=== PATIENT | male | born 1990 | race African-American/Black ===

== ENCOUNTER 2018-04-03 22:00 | Inpatient (IN) | payer OTHER ==
[~2018-04-03] VITALS: Ht 152.4 cm; Wt 89.0 kg
[2018-04-03] MEDS ORDERED: ONDANSETRON PF 4 MG/2 ML VIAL. IV ONE (22:30)
[2018-04-03] MEDS ORDERED: IV NORMAL SALINE 1,000ML 1,000 ML IV ONE ×2 (22:30)
[2018-04-03 22:59] LABS: ALBUMIN 4.3 g/dL (3.4-5.0); ALBUMIN/GLOBULIN RATIO 0.8 (1.0-1.7); CALCIUM 11.2 mg/dL (8.5-10.1); CREATININE 2.7 mg/dL (0.7-1.3); GFR 34.2; POTASSIUM 5.7 mmol/L (3.5-5.1); TOTAL BILIRUBIN 0.4 mg/dL (0.2-1.0); TOTAL PROTEIN 9.7 g/dL (6.4-8.2)
[2018-04-03] MEDS ORDERED: 0.9 % SODIUM CHLORIDE 150ML 150 ML ONE (23:28)
--- NOTE | 2018-04-03 23:31 | PHYS DOC ---
Adult General Chief Complaint Chief Complaint vomiting HPI HPI Due to autism patient is a good historian most of the history was taken from his family his and his cousin 28 years old male presented to the emergency department with vomiting diarrhea and abdominal pain described as cramps all over diarrhea as loose stool his uncle was diagnosed with C. difficile colitis who lives in the same house family concerned the patient has C. difficile colitis Review of systems very limited due to patient mental status Review of Systems Review of Systems Limited due to patient's mental status Current Medications Current Medications Current Medications Medications (Trade) Dose Ordered Sig/Vincent Start Time Stop Time Status Last Admin Dose Admin Insulin Human Regular (HumuLIN R VIAL) 10 unit 1X ONCE 04/03/18 23:30 04/03/18 23:31 UNV Insulin Human Regular 150 unit/ Sodium Chloride 151.5 ml @ 0 mls/hr 1X ONCE 04/03/18 23:30 04/03/18 23:31 UNV Ondansetron HCl (Zofran) 4 mg 1X ONCE 04/03/18 22:30 04/03/18 22:31 DC 04/03/18 23:06 4 MG Sodium Chloride 1,000 ml @ 1,000 mls/hr 1X ONCE 04/03/18 22:30 04/03/18 23:29 04/03/18 23:05 1,000 MLS/HR Allergies Allergies Allergies Coded Allergies Type Severity Reaction Last Updated Verified No Known Drug Allergies 04/03/18 No Physical Exam Physical Exam Constitutional: Well developed, well nourished, looks sick dry mucosa HENT: Normocephalic, atraumatic, bilateral external ears normal, oropharynx dry , no oral exudates, nose normal. [] Eyes: PERRLA, EOMI, conjunctiva normal, no discharge. [] Neck: Normal range of motion, no tenderness, supple, no stridor. [] Cardiovascular:Heart rate regular rhythm, no murmur [] Lungs & Thorax: Bilateral breath sounds clear to auscultation [] Abdomen: Bowel sounds normal, soft, no tenderness, no masses, no pulsatile masses. [] Skin: Warm, dry, no erythema, no rash. [] Back: No tenderness, no CVA tenderness. [] Extremities: No tenderness, no cyanosis, no clubbing, ROM intact, no edema. [] Neurologic: Alert and oriented X 3, normal motor function, normal sensory function, no focal deficits noted. [] Psychologic: Affect normal, judgement normal, mood normal. [] Current Patient Data Vital Signs Vital Signs Date Time Temp Pulse Resp B/P (MAP) Pulse Ox O2 Delivery O2 Flow Rate FiO2 04/03/18 22:00 98.3 109 18 94 Room Air Lab Results Laboratory Tests Test 04/03/18 22:30 Sodium Level 118 mmol/L (136-145) *L Potassium Level 5.7 mmol/L (3.5-5.1) H Chloride Level 84 mmol/L (98-107) L Carbon Dioxide Level 15 mmol/L (21-32) L Anion Gap 19 (6-14) H Blood Urea Nitrogen 42 mg/dL (8-26) H Creatinine 2.7 mg/dL (0.7-1.3) H Estimated GFR (Cockcroft-Gault) 34.2 BUN/Creatinine Ratio 16 (6-20) Glucose Level 1613 mg/dL (70-99) *H Calcium Level 11.2 mg/dL (8.5-10.1) H Total Bilirubin 0.4 mg/dL (0.2-1.0) Aspartate Amino Transferase (AST) 14 U/L (15-37) L Alanine Aminotransferase (ALT) 45 U/L (16-63) Alkaline Phosphatase 208 U/L (46-116) H Total Protein 9.7 g/dL (6.4-8.2) H Albumin 4.3 g/dL (3.4-5.0) Albumin/Globulin Ratio 0.8 (1.0-1.7) L Lipase 675 U/L (73-393) H EKG EKG [] Radiology/Procedures Radiology/Procedures [] Course & Med Decision Making Course & Med Decision Making Pertinent Labs and Imaging studies reviewed. (See chart for details) [] Final Impression Final Impression Case discussed with Dr. Munoz patient to be admitted to his service in ICU[] Problems: (1) Diabetic ketoacidosis Qualifiers: Qualified Codes: E10.10 - Type 1 diabetes mellitus with ketoacidosis without coma Dragon Disclaimer Dragon Disclaimer This electronic medical record was generated, in whole or in part, using a voice recognition dictation system. SHORTY NOYOLA MD Apr 03, 2018 23:31
[2018-04-03 23:52] LABS: BASO % 0 % (0-3); EOS % 0 % (0-3); LYMPH # 0.4 x10^3/uL (1.0-4.8); LYMPH % 5 % (24-48); MEAN CORPUSCULAR HEMOGLOBIN 28 pg (25-35); MONO # 0.3 x10^3/uL (0.0-1.1); MONO % 4 % (0-9); NEUT % 90 % (31-73); PLATELET COUNT 313 x10^3/uL (140-400); RED CELL DISTRIBUTION WIDTH 14.7 % (11.5-14.5); WHITE BLOOD COUNT 6.7 x10^3/uL (4.0-11.0)
[2018-04-03] MEDS ORDERED: IV NORMAL SALINE 1,000ML 1,000 ML IV SCH (23:55)
[2018-04-03] MEDS ORDERED: INSULIN REGULAR 100 UNIT/ML 3ML VIAL. IV ONE (23:55)
[2018-04-03] MEDS ORDERED: ONDANSETRON PF 4 MG/2 ML VIAL. IV PRN (23:55)
[2018-04-03] MEDS ORDERED: INSULIN REGULAR VIAL 150 UNIT in 0.9 % SODIUM CHLORIDE 150ML 150 ML IV ONE (23:55)
[2018-04-04] VITALS (11 sets, daily range): BP systolic 98–158; BP diastolic 55–90
[2018-04-04 00:02] LABS: HEMATOCRIT 47.5 % (39.0-53.0); HEMOGLOBIN 14.9 g/dL (13.0-17.5); RED BLOOD COUNT 5.27 x10^6/uL (4.30-5.70)
[2018-04-04 00:03] LABS: MEAN CORPUSCULAR HGB CONC 31 g/dL (31-37); MEAN CORPUSCULAR VOLUME 90 fL (79-100)
[2018-04-04 00:50] LABS: BGAS PH 7.12 (7.35-7.46)
[2018-04-04 02:20] LABS: CALCIUM 10.7 mg/dL (8.5-10.1); CREATININE 2.4 mg/dL (0.7-1.3); GFR 39.2
[2018-04-04 02:24] LABS: POTASSIUM 2.9 mmol/L (3.5-5.1)
[2018-04-04] MEDS ORDERED: POTASSIUM CHLORIDE 20 MEQ/15 ML ORAL LIQUID. PO ONE ×2 (03:30→07:00)
[2018-04-04] MEDS ORDERED: MULT-245 PO (03:58)
[2018-04-04 06:24] LABS: ALBUMIN 4.4 g/dL (3.4-5.0); ALBUMIN/GLOBULIN RATIO 0.8 (1.0-1.7); CALCIUM 11.6 mg/dL (8.5-10.1); CREATININE 2.3 mg/dL (0.7-1.3); GFR 41.2; TOTAL BILIRUBIN 0.3 mg/dL (0.2-1.0)
[2018-04-04] MEDS ORDERED: INSULIN REGULAR VIAL 150 UNIT in 0.9 % SODIUM CHLORIDE 150ML 150 ML IV PRN (08:00)
[2018-04-04] MEDS ORDERED: POTASSIUM CL 20MEQ IN 0.9%NACL 1,000 ML IV SCH (10:00)
[2018-04-04 10:06] LABS: CALCIUM 11.7 mg/dL (8.5-10.1); CREATININE 2.8 mg/dL (0.7-1.3); GFR 32.8; POTASSIUM 3.1 mmol/L (3.5-5.1)
[2018-04-04] MEDS ORDERED: POTASSIUM CHLORIDE IV SCH (11:00)
[2018-04-04] MEDS ORDERED: SODIUM CHLORIDE IV SCH (11:00)
[2018-04-04] MEDS ORDERED: IV DEXTROSE 5% 1,000 ML IV SCH (11:45)
[2018-04-04 12:30] LABS: CREATININE 3.5 mg/dL (0.7-1.3); GFR 25.4
[2018-04-04 12:32] LABS: CALCIUM 12.1 mg/dL (8.5-10.1)
[2018-04-04 12:47] LABS: MAGNESIUM 4.5 mg/dL (1.8-2.4)
--- NOTE | 2018-04-04 12:52 | RAD ---
Portable chest, 04/04/2018: HISTORY: DKA The heart size and pulmonary vascularity are normal. The lungs are clear. There is no evidence of pleural fluid. IMPRESSION: No acute cardiopulmonary abnormality is detected. Electronically signed by: Juan James MD (04/04/2018 12:49 PM) [facility]
[2018-04-04 13:11] LABS: AMORPHOUS SEDIMENT,UR PRESENT /HPF; BACTERIA,URINE FEW /HPF (0-FEW); BILIRUBIN,URINE NEG (NEG); CLARITY,URINE HAZY; COLOR,URINE YELLOW; GLUCOSE,URINE >=1000 mg/dL (NEG); GRANULAR CASTS,URINE FEW /HPF; NITRITE,URINE NEG (NEG); SQUAMOUS EPITHELIAL CELL,UR OCC /LPF; UROBILINOGEN,URINE 0.2 mg/dL (0.2 mg/dL)
--- NOTE | 2018-04-04 13:25 | EKG ---
[address] [address] Test Date: 2018-04-04 Test Time: 13:22:17 Pat Name: RUSTAM LEBRON Department: Room: [facility] 1 Gender: M Fuel Operator: SHIVAM : 1990 Requested By: JEROME BECK Order Number: [id number] Reading MD: Measurements Intervals [place] Rate: 122 P: 90 OK: 114 QRS: 83 QRSD: 84 T: -49 QT: 322 QTc: 460 Interpretive Statements SINUS TACHYCARDIA ST & T ABNORMALITY, CONSIDER INFEROLATERAL ISCHEMIA OR LEFT VENTRICULAR STRAIN ABNORMAL ECG RI6.01 No previous ECG available for comparison
--- NOTE | 2018-04-04 13:52 | PDOC1 ---
History of Present Illness Reason for Visit: nausea and vomiting History of Present Illness Patient is a 28-year-old male presented initially last night to the [facility] emergency department accompanied by family with whom he currently lives. He has history of autism and cerebral palsy and reportedly a " psychiatric history" as well. He was brought to the emergency department with reports of severe crampy type abdominal discomfort, nausea vomiting, and reportedly diarrhea. He had a potential recent exposure to Clostridium difficile but otherwise no reports of travel or bad food exposure, no evidence of systemic illness such as fever chills. He was tachycardic in the emergency department and labs revealed a sodium of 118, potassium 5.7, B UN of 42, creatinine 2.7, glucose 1613, his anion gap was 19 and lipase was 675. No further workup was undertaken and he was treated symptomatically with Zofran for the vomiting received normal saline IV boluses, placed on an insulin drip, and potassium was replaced by mouth. Patient was admitted to the ICU. Nursing reports that the patient's blood glucose remained so elevated such that fingerstick checks were impossible as instrumentation simply read "high." They checked every 2 hour basic metabolic panels and titrated his insulin drip accordingly. Throughout the night and with 5 L of normal saline intravenously the patient's sodium did increase from 118-157. Despite the hydration patient's renal function is currently at BUN 37 and creatinine 3.5. Patient's potassium dropped to currently 3.0, glucose has steadily trended downward and is currently at 558. His anion gap did correct for a short time to 14 but is currently back up at 17. Corrected calcium has remained elevated as well. Upon learning of the admission and reviewing his labs I did contact on-call hospitalist at [facility] Dr. Choi as although at the time I had not seen the patient his labs were trending negatively and I felt the patient will need to be evaluated at a higher level of care, Dr. Choi graciously accepted the patient for ICU admission [facility]. When I finished clinic this morning I did visit with the patient's and his family in the ICU and discuss the patient's presentation, course overnight, and they are in agreement with transfer as well. They report the patient has no history of diabetes or pancreatitis in the past. RN reports she has not yet produced any stools to send for testing. Chief Complaint: NAUSEA/VOMITING/DIARRHEA Allergies: Coded Allergies: No Known Drug Allergies (Unverified , 04/03/18) Past Medical History Psych: Other (autism, cerebral palsy, "psychiatric problems") Past Surgical History: No pertinent history Past Social History Smoke: No Alcohol: none Drugs: None Lives: with Family Review of Systems Review Of Systems Due to patient's inability to communicate review of systems as per history of present illness. Medications Current Medications Sodium Chloride 1,000 ml @ 1,000 mls/hr 1X ONCE IV Last administered on at 23:05; Start 04/03/18 at 22:30; Stop 04/03/18 at 23:29; Status DC Ondansetron HCl (Zofran) 4 mg 1X ONCE IV Last administered on 04/03/18at 23:06 ; Start 04/03/18 at 22:30; Stop 04/03/18 at 22:31; Status DC Sodium Chloride 1,000 ml @ 1,000 mls/hr 1X ONCE IV Last administered on at 23:05; Start 04/03/18 at 22:30; Stop 04/03/18 at 23:29; Status DC Insulin Human Regular (HumuLIN R VIAL) 10 unit 1X ONCE IV Last administered on 04/03/18at 23:52; Start 04/03/18 at 23:55; Stop 04/03/18 at 23:56; Status DC Insulin Human Regular 150 unit/ Sodium Chloride 151.5 ml @ 0 mls/hr 1X ONCE IV Last administered on 04/03/18at 23:55; Start 04/03/18 at 23:55; Stop at 23:56; Status DC Sodium Chloride 150 ml @ As Directed STK-MED ONCE .ROUTE ; Start 04/03/18 at 23 :28; Stop 04/03/18 at 23:29; Status DC Ondansetron HCl (Zofran) 4 mg PRN Q4HRS PRN IV NAUSEA/VOMITING Last administered on 04/04/18at 07:08; Start 04/03/18 at 23:55; Stop 04/04/18 at 23:54 Sodium Chloride 1,000 ml @ 0 mls/hr Q0M IV ; Start 04/03/18 at 23:55 Potassium Chloride (KCl Oral Soln) 40 meq 1X ONCE PO Last administered on 04/04at 03:41; Start 04/04/18 at 03:30; Stop 04/04/18 at 03:33; Status DC Influenza Virus Vaccine (Afluria Trivalent [id number] Syringe) 0.5 ml ONCE ONCE VAX IM ; Start 04/04/18 at 09:00; Stop 04/04/18 at 09:01; Status DC Potassium Chloride (KCl Oral Soln) 40 meq 1X ONCE PO Last administered on 04/04at 06:55; Start 04/04/18 at 07:00; Stop 04/04/18 at 07:01; Status DC Insulin Human Regular 150 unit/ Sodium Chloride 151.5 ml @ 0 mls/hr CONT PRN IV . Last administered on 04/04/18at 09:00; Start 04/04/18 at 08:00 Potassium Chloride/Sodium Chloride 1,000 ml @ 150 mls/hr Q6H40M IV ; Start 04/04/18 at 10:00; Stop 04/04/18 at 10:31; Status DC Potassium Chloride/Sodium Chloride 500 ml @ 150 mls/hr Q3H20M IV Last administered on 04/04/18at 10:58; Start 04/04/18 at 11:00; Stop 04/04/18 at 14:19 Dextrose 1,000 ml @ 100 mls/hr Q10H IV Last administered on 04/04/18at 12:53; Start 04/04/18 at 11:45 Fentanyl Citrate (Fentanyl 2ml Vial) 50 mcg PRN Q2HR PRN IV PAIN Last administered on 04/04/18at 13:05; Start 04/04/18 at 12:30 Active Scripts Active Reported Multi Vitamin Daily (Multivitamin) 1 Each Tablet 1 Each PO DAILY Exam Vital Signs Vital Signs Date Time Temp Pulse Resp B/P (MAP) Pulse Ox O2 Delivery O2 Flow Rate FiO2 04/04/18 13:19 98.3 121 21 98/55 (69) 94 Room Air General Appearance: Alert (and somewhat cooperative) HEENT: Atraumatic, Other (dry mucous membranes) Respiratory: Clear to auscultation, Normal air movement Heart: Other (tachycardia) Abdominal: Soft (mildly distended no palpable masses, generalized tender without obvious peritoneal signs) Extremities: No clubbing, No cyanosis Neuro: Other (appears to move all extremities family reports at baseline) Assessment/Plan Assessment/Plan Diabetic ketoacidosis Acute pancreatitis Acute kidney injury versus possible worsening of pre-existing underlying renal disease Severe hyponatremia and hypokalemia Debilitated state with pre-existing autism and cerebral palsy Continue insulin drip and her electrolyte replacement. Chest x-ray, urinalysis, and pancultures. D5W at 100 mL an hour. Will hold off on CT abdomen and pelvis until after transfer to avoid delay, may also need GI consultation. Fentanyl intravenously for pain control. Check EKG as well as cardiac enzymes, check triglycerides as well. Transfer to [facility] ICU Dr. Choi is accepting. COURSE Allergies Coded Allergies Type Severity Reaction Last Updated Verified No Known Drug Allergies 04/03/18 No Laboratory Tests Test 04/03/18 22:30 04/03/18 23:10 04/04/18 00:45 04/04/18 01:40 Sodium Level 118 mmol/L (136-145) 132 mmol/L (136-145) Potassium Level 5.7 mmol/L (3.5-5.1) 2.9 mmol/L (3.5-5.1) Chloride Level 84 mmol/L (98-107) 99 mmol/L (98-107) Carbon Dioxide Level 15 mmol/L (21-32) 15 mmol/L (21-32) Anion Gap 19 (6-14) 18 (6-14) Blood Urea Nitrogen 42 mg/dL (8-26) 38 mg/dL (8-26) Creatinine 2.7 mg/dL (0.7-1.3) 2.4 mg/dL (0.7-1.3) Estimated GFR (Cockcroft-Gault) 34.2 39.2 BUN/Creatinine Ratio 16 (6-20) Glucose Level 1613 mg/dL (70-99) 1645 mg/dL (70-99) Calcium Level 11.2 mg/dL (8.5-10.1) 10.7 mg/dL (8.5-10.1) Total Bilirubin 0.4 mg/dL (0.2-1.0) Aspartate Amino Transf (AST/SGOT) 14 U/L (15-37) Alanine Aminotransferase (ALT/SGPT) 45 U/L (16-63) Alkaline Phosphatase 208 U/L (46-116) Total Protein 9.7 g/dL (6.4-8.2) Albumin 4.3 g/dL (3.4-5.0) Albumin/Globulin Ratio 0.8 (1.0-1.7) Lipase 675 U/L (73-393) White Blood Count 6.7 x10^3/uL (4.0-11.0) Red Blood Count 5.27 x10^6/uL (4.30-5.70) Hemoglobin 14.9 g/dL (13.0-17.5) Hematocrit 47.5 % (39.0-53.0) Mean Corpuscular Volume 90 fL (79-100) Mean Corpuscular Hemoglobin 28 pg (25-35) Mean Corpuscular Hemoglobin Concent 31 g/dL (31-37) Red Cell Distribution Width 14.7 % (11.5-14.5) Platelet Count 313 x10^3/uL (140-400) Neutrophils (%) (Auto) 90 % (31-73) Lymphocytes (%) (Auto) 5 % (24-48) Monocytes (%) (Auto) 4 % (0-9) Eosinophils (%) (Auto) 0 % (0-3) Basophils (%) (Auto) 0 % (0-3) Neutrophils # (Auto) 6.0 x10^3uL (1.8-7.7) Lymphocytes # (Auto) 0.4 x10^3/uL (1.0-4.8) Monocytes # (Auto) 0.3 x10^3/uL (0.0-1.1) Eosinophils # (Auto) 0.0 x10^3/uL (0.0-0.7) Basophils # (Auto) 0.0 x10^3/uL (0.0-0.2) Blood Gas pH 7.12 (7.35-7.46) Blood Gas PCO2 37 mmHg (35-46) Blood Gas PO2 88 mmHg (80-100) Blood Gas HCO3 12 mmol/L (21-28) Arterial Bld O2 Saturation (Calc) 93 % (92-99) FiO2 21 % Test 04/04/18 03:50 04/04/18 05:55 04/04/18 08:52 04/04/18 12:01 Glucose Level 1270 mg/dL (70-99) 1116 mg/dL (70-99) 794 mg/dL (70-99) Sodium Level 145 mmol/L (136-145) 152 mmol/L (136-145) Potassium Level 3.0 mmol/L (3.5-5.1) 3.1 mmol/L (3.5-5.1) Chloride Level 111 mmol/L (98-107) 117 mmol/L (98-107) Carbon Dioxide Level 20 mmol/L (21-32) 17 mmol/L (21-32) Anion Gap 14 (6-14) 18 (6-14) Blood Urea Nitrogen 34 mg/dL (8-26) 36 mg/dL (8-26) Creatinine 2.3 mg/dL (0.7-1.3) 2.8 mg/dL (0.7-1.3) Estimated GFR (Cockcroft-Gault) 41.2 32.8 BUN/Creatinine Ratio 15 (6-20) Calcium Level 11.6 mg/dL (8.5-10.1) 11.7 mg/dL (8.5-10.1) Total Bilirubin 0.3 mg/dL (0.2-1.0) Aspartate Amino Transf (AST/SGOT) 5 U/L (15-37) Alanine Aminotransferase (ALT/SGPT) 43 U/L (16-63) Alkaline Phosphatase 193 U/L (46-116) Total Protein 10.0 g/dL (6.4-8.2) Albumin 4.4 g/dL (3.4-5.0) Albumin/Globulin Ratio 0.8 (1.0-1.7) Glucose (Fingerstick) 492 mg/dL (70-99) Test 04/04/18 12:05 04/04/18 12:35 04/04/18 13:10 Sodium Level 157 mmol/L (136-145) Potassium Level 3.0 mmol/L (3.5-5.1) Chloride Level 119 mmol/L (98-107) Carbon Dioxide Level 21 mmol/L (21-32) Anion Gap 17 (6-14) Blood Urea Nitrogen 37 mg/dL (8-26) Creatinine 3.5 mg/dL (0.7-1.3) Estimated GFR (Cockcroft-Gault) 25.4 Glucose Level 558 mg/dL (70-99) Calcium Level 12.1 mg/dL (8.5-10.1) Magnesium Level 4.5 mg/dL (1.8-2.4) Creatine Kinase 424 U/L (39-308) Troponin I Quantitative 0.053 ng/mL (0-0.055) Urine Collection Type U cath Urine Color Yellow Urine Clarity Hazy Urine pH 5.5 Urine Specific [place] <=1.005 Urine Protein 100 mg/dl (NEG-TRACE) Urine Glucose (UA) >=1000 mg/dL (NEG) Urine Ketones (Stick) Neg mg/dL (NEG) Urine Blood Mod (NEG) Urine Nitrite Neg (NEG) Urine Bilirubin Neg (NEG) Urine Urobilinogen Dipstick 0.2 mg/dL (0.2 mg/dL) Urine Leukocyte Esterase Neg (NEG) Urine RBC 1-2 /HPF (0-2) Urine WBC 1-4 /HPF (0-4) Urine Squamous Epithelial Cells Occ /LPF Urine Amorphous Sediment Present /HPF Urine Bacteria Few /HPF (0-FEW) Urine Granular Casts Few /HPF Urine Mucus Slight /LPF Glucose (Fingerstick) 475 mg/dL (70-99) Current Medications Medications (Trade) Dose Ordered Sig/Vincent Route PRN Reason Start Time Stop Time Status Last Admin Dose Admin Sodium Chloride 1,000 ml @ 1,000 mls/hr 1X ONCE IV 04/03/18 22:30 04/03/18 23:29 DC 04/03/18 23:05 Ondansetron HCl (Zofran) 4 mg 1X ONCE IV 04/03/18 22:30 04/03/18 22:31 DC 04/03/18 23:06 Sodium Chloride 1,000 ml @ 1,000 mls/hr 1X ONCE IV 04/03/18 22:30 04/03/18 23:29 DC 04/03/18 23:05 Insulin Human Regular (HumuLIN R VIAL) 10 unit 1X ONCE IV 04/03/18 23:55 04/03/18 23:56 DC 04/03/18 23:52 Insulin Human Regular 150 unit/ Sodium Chloride 151.5 ml @ 0 mls/hr 1X ONCE IV 04/03/18 23:55 04/03/18 23:56 DC 04/03/18 23:55 Sodium Chloride 150 ml @ As Directed STK-MED ONCE .ROUTE 04/03/18 23:28 04/03/18 23:29 DC Ondansetron HCl (Zofran) 4 mg PRN Q4HRS PRN IV NAUSEA/VOMITING 04/03/18 23:55 04/04/18 23:54 04/04/18 07:08 Sodium Chloride 1,000 ml @ 0 mls/hr Q0M IV 04/03/18 23:55 Potassium Chloride (KCl Oral Soln) 40 meq 1X ONCE PO 04/04/18 03:30 04/04/18 03:33 DC 04/04/18 03:41 Influenza Virus Vaccine (Afluria Trivalent [id number] Syringe) 0.5 ml ONCE ONCE VAX IM 04/04/18 09:00 04/04/18 09:01 DC Potassium Chloride (KCl Oral Soln) 40 meq 1X ONCE PO 04/04/18 07:00 04/04/18 07:01 DC 04/04/18 06:55 Insulin Human Regular 150 unit/ Sodium Chloride 151.5 ml @ 0 mls/hr CONT PRN IV . 04/04/18 08:00 04/04/18 09:00 Potassium Chloride/Sodium Chloride 1,000 ml @ 150 mls/hr Q6H40M IV 04/04/18 10:00 04/04/18 10:31 DC Potassium Chloride/Sodium Chloride 500 ml @ 150 mls/hr Q3H20M IV 04/04/18 11:00 04/04/18 14:19 04/04/18 10:58 Dextrose 1,000 ml @ 100 mls/hr Q10H IV 04/04/18 11:45 04/04/18 12:53 Fentanyl Citrate (Fentanyl 2ml Vial) 50 mcg PRN Q2HR PRN IV PAIN 04/04/18 12:30 04/04/18 13:05 Orders Procedure Category Date Status Time Comprehensive LAB 04/03/18 Complete Metabolic Panel 22:05 Cdif W/ Epi Pcr LAB 04/03/18 Logged 22:05 Lipase LAB 04/03/18 Complete 22:05 Iv Normal Saline PHA 04/03/18 Complete 1,000ml (Iv Sodium 22:30 Ondansetron Pf PHA 04/03/18 Complete (Zofran) 22:30 Iv Normal Saline PHA 04/03/18 Complete 1,000ml (Iv Sodium 22:30 Cbc W Autodiff LAB 04/03/18 Complete 22:50 Insulin Regular Vial PHA 04/03/18 Complete (Humulin R Vial) 23:55 Insulin Regular Vial PHA 04/03/18 Complete (Humulin R Vial) 23:55 Pulse Oximetry: [facility] 04/03/18 In Process Standing Order 23:20 Arterial Blood Gas LAB 04/03/18 Complete 23:26 0.9 % Sodium Chloride PHA 04/03/18 Complete 150ml (Iv Normal S 23:28 [place] Order ADT 04/03/18 Transmitted 23:31 Code Status CODE 04/03/18 Transmitted 23:31 Vital Signs, Per [facility] 04/03/18 In Process Protocol 23:31 Nothing By Mouth DIET 04/04/18 Transmitted Breakfast Ambulate With DUYEN 04/03/18 In Process Assistance 23:31 Comprehensive LAB 04/04/18 Complete Metabolic Panel 06:00 Ondansetron Pf PHA 04/03/18 In Process (Zofran) 23:55 Iv Normal Saline PHA 04/03/18 In Process 1,000ml (Iv Sodium 23:55 Pneumatic Compression DUYEN 04/04/18 In Process Device 00:37 Admit Orders [facility] 04/04/18 Transmitted Basic Metabolic Panel LAB 04/04/18 Complete 02:06 Potassium Chloride PHA 04/04/18 Complete Oral Soln (Kcl Oral S 03:30 Mrsa By Pcr LAB 04/04/18 In Process 02:26 Rehab Screening (Pt, REHAB 04/05/[address], [address]) 07:00 Flu Vacc Screen [facility] 04/04/18 In Process 03:11 Isolation OTHER 04/04/18 Transmitted 03:11 Flu Vacc Ts 2017- PHA 04/04/18 Complete (5yr+)/Pf (Afluria T 09:00 Glucose LAB 04/04/18 Complete 03:53 Potassium Chloride PHA 04/04/18 Complete Oral Soln (Kcl Oral S 07:00 Insulin Regular Vial PHA 04/04/18 In Process (Humulin R Vial) 08:00 Basic Metabolic Panel LAB 04/04/18 Complete 09:45 Nutrition Consult NOURISH 04/04/18 Transmitted 09:45 Insert And Maintain DUYEN 04/04/18 In Process [place] Cath 09:45 Potassium Cl 20meq In PHA 04/04/18 Complete 0.9%Nacl (Kcl 20 M 10:00 Potassium Cl PHA 04/04/18 In Process 20meq-0.45% Nacl (Kcl 11:00 Basic Metabolic Panel LAB 04/04/18 Complete 12:00 Iv Dextrose 5% PHA 04/04/18 In Process 11:45 Chest Ap Only RAD 04/04/18 Resulted 12:22 Blood Culture CHAPO 04/04/18 In Process 12:22 Ua, Cult If Indicated LAB 04/04/18 Complete 12:22 Fentanyl Pf (Fentanyl PHA 04/04/18 In Process 2ml Vial) 12:30 C-Peptide LAB 04/04/18 In Process 12:24 Creatine Kinase LAB 04/04/18 Complete 12:27 Troponin I LAB 04/04/18 Complete 12:27 12 Lead Ekg EKG 04/04/18 Complete 12:27 Magnesium LAB 04/04/18 Complete 12:27 Vital Signs Date Time Temp Pulse Resp B/P (MAP) Pulse Ox O2 Delivery O2 Flow Rate FiO2 04/04/18 13:19 98.3 121 21 98/55 (69) 94 Room Air JERMOE BECK DO Apr 04, 2018 13:52
== END 2018-04-04 15:33 | disposition short-term general hospital (02) | DRG 637 ==
LOC: ER 22:00 → ICU 04-04 00:15
PROVIDERS: ADMIT Internal Medicine; ATTEND Internal Medicine
DX: E10.10 Type 1 diabetes mellitus with ketoacidosis without coma (principal); K85.90 Acute pancreatitis without necrosis or infection, unspecified; F84.0 Autistic disorder; E87.1 Hypo-osmolality and hyponatremia; N17.9 Acute kidney failure, unspecified; G80.9 Cerebral palsy, unspecified; E87.6 Hypokalemia
CPT/HCPCS: 36415; 36600; 71045; 80048; 80053; 81001; 82550; 82803; 82947; 83690; 83735; 84484; 84681; 85025; 87040; 87641; 93005; 96361; 96365; 96375; 96376; J1815; J2405; J3010; 99285-25; J7030